=== PATIENT | female | born 1975 | race Caucasian/White ===

== ENCOUNTER 2018-05-19 17:38 | Inpatient (IN) | payer OTHER ==
[~2018-05-19] VITALS: Ht 162.6 cm; Wt 92.1 kg
[~2018-05-19 17:38] MED LIST: ATOR10TA84 PO; FERR-89 PO; FLUO-191 PO; HYDR-309 PO; LACT1CAP38 PO; LEVO75 PO
[2018-05-19] MEDS ORDERED: PANT40TA25 PO (18:42)
[2018-05-19] MEDS ORDERED: HEPA500041 SQ (18:42)
[2018-05-19] MEDS ORDERED: ONDANSETRON HCL 4 MG/2 ML VIAL IVP ONE (19:15)
[2018-05-19] MEDS ORDERED: MORPHINE SULFATE 4 MG/ML SYRINGE IVP ONE (19:15)
[2018-05-19] MEDS ORDERED: VANCOMYCIN HCL 1 GM/D5% WATER 200 ML IV ONE (19:15)
[2018-05-19 19:59] LABS: BASOPHILS % (AUTO) 0.5 % (0.0-2.0); EOSINOPHILS % (AUTO) 2.1 % (1.0-6.0); HEMATOCRIT 29.6 % (36-46); HEMOGLOBIN 9.1 g/dL (12.0-16.0); LYMPHOCYTES # (AUTO) 1.6 K/uL (1.0-4.8); LYMPHOCYTES % (AUTO) 14.7 % (22.0-44.0); MEAN CORPUSCULAR HEMOGLOBIN 21.2 pg (26.0-34.0); MEAN CORPUSCULAR HGB CONC 30.7 G/dL (31.0-37.0); MEAN CORPUSCULAR VOLUME 69 fL (80-100); MONOCYTES # (AUTO) 0.6 K/uL (0.1-1.0); MONOCYTES % (AUTO) 5.8 % (2.0-9.0); NEUTROPHILS # (AUTO) 8.3 K/uL (1.8-7.7); NEUTROPHILS % (AUTO) 76.9 % (40.0-70.0); PLATELET COUNT (AUTO) 518 K/uL (150-450); RED BLOOD CELL COUNT(AUTO) 4.29 MIL/uL (4.00-5.20); RED CELL DISTRIBUTION WIDTH 23.6 % (11.5-14.5)
[2018-05-19 20:15] LABS: ANION GAP 10 mmol/L (8-16); CALCIUM, TOTAL 9.1 mg/dL (8.8-10.5); CARBON DIOXIDE 27 mmol/L (22-29); CHLORIDE 99 mmol/L (98-107); CREATININE 0.85 mg/dL (0.60-1.30); GLOMERULAR FILTR. RATE CALC > 60 mL/min (>60); GLUCOSE,RANDOM 113 mg/dL (70-110); POTASSIUM 3.7 mmol/L (3.5-5.1); SODIUM SERUM 136 mmol/L (136-145); UREA NITROGEN, BLOOD 11 mg/dL (7-18)
[2018-05-19 20:20] LABS: B-TYPE NATRIURETIC PEPTIDE 12 pg/mL (0-100)
[2018-05-19 20:22] LABS: LACTIC ACID 1.3 mmol/L (0.4-2.0); PLATELET MORPHOLOGY COMMENT NORMAL
[2018-05-19 20:28] LABS: ALANINE AMINOTRANSFERASE 34 U/L (12-78); ALBUMIN 2.9 g/dL (3.4-5.0); ALKALINE PHOSPHATASE 87 U/L (46-116); ASPARTATE AMINOTRANSFERASE 20 U/L (15-37); BILIRUBIN,TOTAL 0.3 mg/dL (0.1-1.0); TOTAL PROTEIN, SERUM 7.3 g/dL (6.4-8.2)
[2018-05-19] MEDS ORDERED: ACETAMINOPHEN 325 MG TABLET PO PRN (20:45)
[2018-05-19] MEDS ORDERED: ONDANSETRON HCL 4 MG/2 ML VIAL IVP PRN (20:45)
[2018-05-19] MEDS ORDERED: 0.9% SODIUM CHLORIDE 10 ML SYRINGE IVP PRN (20:45)
[2018-05-19] MEDS ORDERED: IOVERSOL 350 MG/ML 100 ML VIAL ONE (20:50)
[2018-05-19] MEDS ORDERED: SODIUM CHLORIDE 0.9% 100 ML ONE (20:50)
[2018-05-19] MEDS ORDERED: HYDROmorphone 2 MG/ML SYRINGE IVP ONE (21:15)
[2018-05-19 22:17] VITALS: BP 122/71
[2018-05-19] MEDS ORDERED: DIPH25CA85 PO (22:48)
[2018-05-20] MEDS ORDERED: *CLINICAL-CEFEPIME DOSING CLINICAL ONE (00:15)
[2018-05-20] MEDS ORDERED: ALBUTEROL SULFATE 2.5 MG/0.5 ML NEB SOLUTION NEB PRN (00:30)
[2018-05-20] MEDS ORDERED: ACETAMINOPHEN 325 MG TABLET PO PRN (00:30)
[2018-05-20] MEDS ORDERED: IPRATROPIUM BROMIDE 0.5 MG/2.5 ML NEB SOLUTION NEB PRN (00:30)
[2018-05-20] MEDS ORDERED: BISACODYL 10 MG RECTAL RECTAL SUPPOSITORY PR PRN (00:30)
[2018-05-20] MEDS ORDERED: DiphenhydrAMINE HCL 25 MG CAPSULE PO PRN (00:30)
[2018-05-20] MEDS ORDERED: ONDANSETRON HCL 4 MG/2 ML VIAL IVP PRN (00:30)
[2018-05-20] MEDS: SODIUM CHLORIDE 0.9% 1,000 ML IV SCH (01:08)
[2018-05-20] MEDS ORDERED: VANCOMYCIN HCL 500 MG in DEXTROSE 5%-WATER 100 ML IV ONE (01:15)
[2018-05-20] MEDS: MORPHINE SULFATE 2 MG/ML SYRINGE IVP PRN ×2 (01:18→16:23)
[2018-05-20] MEDS: CEFEPIME HCL 2 GM in DEXTROSE 5%-WATER 50 ML IV SCH ×2 (02:24→16:10)
[2018-05-20] MEDS: HYDROCODONE/ACETAMINOPHEN 5-325 MG TABLET PO PRN ×2 (06:19→21:11)
[2018-05-20] MEDS: LEVOTHYROXINE SODIUM 75 MCG TABLET PO SCH (06:20)
[2018-05-20] MEDS: PANTOPRAZOLE SODIUM 40 MG DR TABLET PO SCH (06:35)
[2018-05-20 06:51] LABS: BASOPHILS % (AUTO) 0.4 % (0.0-2.0); EOSINOPHILS % (AUTO) 3.1 % (1.0-6.0); HEMATOCRIT 28.8 % (36-46); LYMPHOCYTES # (AUTO) 0.7 K/uL (1.0-4.8); LYMPHOCYTES % (AUTO) 7.7 % (22.0-44.0); MEAN CORPUSCULAR HEMOGLOBIN 21.5 pg (26.0-34.0); MEAN CORPUSCULAR HGB CONC 31.2 G/dL (31.0-37.0); MEAN CORPUSCULAR VOLUME 69 fL (80-100); MONOCYTES # (AUTO) 0.6 K/uL (0.1-1.0); MONOCYTES % (AUTO) 6.5 % (2.0-9.0); NEUTROPHILS # (AUTO) 7.2 K/uL (1.8-7.7); NEUTROPHILS % (AUTO) 82.3 % (40.0-70.0); PLATELET COUNT (AUTO) 487 K/uL (150-450); RED BLOOD CELL COUNT(AUTO) 4.16 MIL/uL (4.00-5.20); RED CELL DISTRIBUTION WIDTH 24.1 % (11.5-14.5)
[2018-05-20 07:10] LABS: % IRON SATURATION 4.5 % (22-44)
[2018-05-20 07:12] LABS: ALANINE AMINOTRANSFERASE 29 U/L (12-78); ALBUMIN 2.4 g/dL (3.4-5.0); ALKALINE PHOSPHATASE 84 U/L (46-116); ANION GAP 8 mmol/L (8-16); ASPARTATE AMINOTRANSFERASE 16 U/L (15-37); BILIRUBIN,TOTAL 0.4 mg/dL (0.1-1.0); CALCIUM, TOTAL 8.8 mg/dL (8.8-10.5); CARBON DIOXIDE 29 mmol/L (22-29); CHLORIDE 98 mmol/L (98-107); CREATININE 0.77 mg/dL (0.60-1.30); GLOMERULAR FILTR. RATE CALC > 60 mL/min (>60); GLUCOSE,RANDOM 98 mg/dL (70-110); POTASSIUM 3.5 mmol/L (3.5-5.1); SODIUM SERUM 135 mmol/L (136-145); UREA NITROGEN, BLOOD 9 mg/dL (7-18)
[2018-05-20] MEDS ORDERED: VANCOMYCIN HCL 1.5 GM in DEXTROSE 5%-WATER 250 ML IV SCH (08:00)
[2018-05-20] MEDS: ATORVASTATIN CALCIUM 10 MG TABLET PO SCH (08:19)
[2018-05-20] MEDS: FERROUS SULFATE 325 MG EC TABLET PO SCH ×2 (08:19→17:16)
[2018-05-20] MEDS: FLUoxetine HCL 20 MG CAPSULE PO SCH ×2 (08:19→21:09)
[2018-05-20] MEDS: HEPARIN SODIUM,PORCINE 5,000 UNITS/ML VIAL SQ SCH ×2 (08:20→21:09)
[2018-05-20] MEDS: LACTOBACILLUS ACIDOPHILUS/BULGARICUS TABLET PO SCH ×2 (08:20→21:11)
[2018-05-20 08:24] VITALS: BP 126/78
[2018-05-20 09:17] LABS: ERYTHROCYTE SEDIMENTATION RATE 40 MM/HR (0-20)
[2018-05-20 10:30] LABS: FOLATE SERUM 9.2 ng/mL (5.4-)
[2018-05-20 11:59] VITALS: BP 129/69
[2018-05-20] MEDS ORDERED: SODIUM CL IRRIG SOLN BOTTLE 250 ML IRRIG ONE (14:32)
[2018-05-20 16:05] VITALS: BP 110/59
[2018-05-20] MEDS: VANCOMYCIN HCL 1.25 GM in DEXTROSE 5%-WATER 250 ML IV SCH ×2 (16:53→23:04)
[2018-05-20 19:36] VITALS: BP 110/63
[2018-05-21] VITALS (7 sets, daily range): BP systolic 94–133; BP diastolic 46–76
[2018-05-21] MEDS: CEFEPIME HCL 2 GM in DEXTROSE 5%-WATER 50 ML IV SCH ×2 (03:46→13:50)
[2018-05-21] MEDS: PANTOPRAZOLE SODIUM 40 MG DR TABLET PO SCH (05:43)
[2018-05-21] MEDS: LEVOTHYROXINE SODIUM 75 MCG TABLET PO SCH (05:43)
[2018-05-21] MEDS: HYDROCODONE/ACETAMINOPHEN 5-325 MG TABLET PO PRN (05:44)
[2018-05-21] MEDS: VANCOMYCIN HCL 1.25 GM in DEXTROSE 5%-WATER 250 ML IV SCH ×3 (06:07→22:44)
[2018-05-21 06:31] LABS: CALCIUM, TOTAL 8.6 mg/dL (8.8-10.5); CHLORIDE 100 mmol/L (98-107); GLOMERULAR FILTR. RATE CALC > 60 mL/min (>60); GLUCOSE,RANDOM 117 mg/dL (70-110); POTASSIUM 3.7 mmol/L (3.5-5.1); SODIUM SERUM 134 mmol/L (136-145); UREA NITROGEN, BLOOD 11 mg/dL (7-18)
[2018-05-21 07:01] LABS: ANION GAP 4 mmol/L (8-16); CARBON DIOXIDE 30 mmol/L (22-29)
[2018-05-21] MEDS: HEPARIN SODIUM,PORCINE 5,000 UNITS/ML VIAL SQ SCH ×2 (08:47→20:00)
[2018-05-21] MEDS: ATORVASTATIN CALCIUM 10 MG TABLET PO SCH (08:47)
[2018-05-21] MEDS: FERROUS SULFATE 325 MG EC TABLET PO SCH ×2 (08:47→17:31)
[2018-05-21] MEDS: LACTOBACILLUS ACIDOPHILUS/BULGARICUS TABLET PO SCH ×2 (08:50→20:00)
[2018-05-21] MEDS: FLUoxetine HCL 20 MG CAPSULE PO SCH ×2 (08:50→20:00)
[2018-05-21] MEDS: MULTIVITAMINS WITH MINERALS, THERAPEUTIC TABLET PO SCH (12:19)
[2018-05-21] MEDS: SODIUM CHLORIDE 0.9% 1,000 ML IV SCH (15:31)
[2018-05-21] MEDS: MORPHINE SULFATE 2 MG/ML SYRINGE IVP PRN (21:50)
[2018-05-22] MEDS: CEFEPIME HCL 2 GM in DEXTROSE 5%-WATER 50 ML IV SCH ×2 (01:59→13:58)
[2018-05-22 04:27] VITALS: BP 125/60
[2018-05-22] MEDS: LEVOTHYROXINE SODIUM 75 MCG TABLET PO SCH (05:10)
[2018-05-22] MEDS: PANTOPRAZOLE SODIUM 40 MG DR TABLET PO SCH (05:10)
[2018-05-22 06:08] LABS: ANION GAP 5 mmol/L (8-16); CALCIUM, TOTAL 8.4 mg/dL (8.8-10.5); CARBON DIOXIDE 29 mmol/L (22-29); CHLORIDE 102 mmol/L (98-107); CREATININE 0.66 mg/dL (0.60-1.30); GLOMERULAR FILTR. RATE CALC > 60 mL/min (>60); GLUCOSE,RANDOM 101 mg/dL (70-110); POTASSIUM 3.4 mmol/L (3.5-5.1); SODIUM SERUM 136 mmol/L (136-145); UREA NITROGEN, BLOOD 8 mg/dL (7-18); VANCOMYCIN,RANDOM 22.4 mcg/mL (25.0-50.0)
[2018-05-22] MEDS: VANCOMYCIN HCL 1.25 GM in DEXTROSE 5%-WATER 250 ML IV SCH ×3 (06:42→22:18)
[2018-05-22] MEDS: SODIUM CHLORIDE 0.9% 1,000 ML IV SCH ×2 (06:45→20:11)
[2018-05-22 07:57] VITALS: BP 103/54
[2018-05-22] MEDS: LACTOBACILLUS ACIDOPHILUS/BULGARICUS TABLET PO SCH ×2 (08:11→20:11)
[2018-05-22] MEDS: MULTIVITAMINS WITH MINERALS, THERAPEUTIC TABLET PO SCH (08:11)
[2018-05-22] MEDS: ATORVASTATIN CALCIUM 10 MG TABLET PO SCH (08:11)
[2018-05-22] MEDS: FERROUS SULFATE 325 MG EC TABLET PO SCH ×2 (08:11→18:06)
[2018-05-22] MEDS: HEPARIN SODIUM,PORCINE 5,000 UNITS/ML VIAL SQ SCH ×2 (08:11→20:11)
[2018-05-22] MEDS: FLUoxetine HCL 20 MG CAPSULE PO SCH ×2 (08:11→20:11)
[2018-05-22 11:55] VITALS: BP 121/62
[2018-05-22] MEDS: MORPHINE SULFATE 2 MG/ML SYRINGE IVP PRN ×2 (14:43→20:31)
[2018-05-22 15:15] VITALS: BP 123/78
[2018-05-22] MEDS: HYDROCODONE/ACETAMINOPHEN 5-325 MG TABLET PO PRN (18:54)
[2018-05-22] MEDS ORDERED: POTASSIUM CHLORIDE 20 MEQ ER TABLET PO ONE (20:00)
[2018-05-22 20:03] VITALS: BP 122/68
[2018-05-22 23:30] VITALS: BP 127/81
[2018-05-23] MEDS: CEFEPIME HCL 2 GM in DEXTROSE 5%-WATER 50 ML IV SCH ×2 (02:12→13:48)
[2018-05-23 05:05] VITALS: BP 123/82
[2018-05-23] MEDS: PANTOPRAZOLE SODIUM 40 MG DR TABLET PO SCH (06:01)
[2018-05-23] MEDS: VANCOMYCIN HCL 1.25 GM in DEXTROSE 5%-WATER 250 ML IV SCH ×3 (06:01→23:35)
[2018-05-23] MEDS: LEVOTHYROXINE SODIUM 75 MCG TABLET PO SCH (06:01)
[2018-05-23 06:06] LABS: ANION GAP 6 mmol/L (8-16); CALCIUM, TOTAL 8.4 mg/dL (8.8-10.5); CARBON DIOXIDE 29 mmol/L (22-29); CHLORIDE 102 mmol/L (98-107); CREATININE 0.63 mg/dL (0.60-1.30); GLOMERULAR FILTR. RATE CALC > 60 mL/min (>60); GLUCOSE,RANDOM 103 mg/dL (70-110); POTASSIUM 3.9 mmol/L (3.5-5.1); SODIUM SERUM 137 mmol/L (136-145); UREA NITROGEN, BLOOD 6 mg/dL (7-18)
[2018-05-23 07:15] VITALS: BP 107/67
[2018-05-23] MEDS: FLUoxetine HCL 20 MG CAPSULE PO SCH ×2 (08:31→20:17)
[2018-05-23] MEDS: FERROUS SULFATE 325 MG EC TABLET PO SCH ×2 (08:31→17:28)
[2018-05-23] MEDS: LACTOBACILLUS ACIDOPHILUS/BULGARICUS TABLET PO SCH ×2 (08:31→20:18)
[2018-05-23] MEDS: HEPARIN SODIUM,PORCINE 5,000 UNITS/ML VIAL SQ SCH ×2 (08:32→20:18)
[2018-05-23] MEDS: SODIUM CHLORIDE 0.9% 1,000 ML IV SCH ×2 (08:33→22:02)
[2018-05-23] MEDS: HYDROCODONE/ACETAMINOPHEN 5-325 MG TABLET PO PRN ×2 (10:59→20:18)
[2018-05-23] MEDS: ATORVASTATIN CALCIUM 10 MG TABLET PO SCH (11:02)
[2018-05-23] MEDS: MULTIVITAMINS WITH MINERALS, THERAPEUTIC TABLET PO SCH (11:03)
[2018-05-23 11:10] VITALS: BP 112/64
[2018-05-23] MEDS: MORPHINE SULFATE 2 MG/ML SYRINGE IVP PRN (15:14)
[2018-05-23 15:41] LABS: BASOPHILS % (AUTO) 0.6 % (0.0-2.0); EOSINOPHILS % (AUTO) 3.8 % (1.0-6.0); HEMATOCRIT 27.9 % (36-46); HEMOGLOBIN 8.4 g/dL (12.0-16.0); MEAN CORPUSCULAR HEMOGLOBIN 21.5 pg (26.0-34.0); MEAN CORPUSCULAR VOLUME 72 fL (80-100); MONOCYTES # (AUTO) 0.8 K/uL (0.1-1.0); MONOCYTES % (AUTO) 7.5 % (2.0-9.0); NEUTROPHILS # (AUTO) 8.7 K/uL (1.8-7.7); NEUTROPHILS % (AUTO) 79.1 % (40.0-70.0); PLATELET COUNT (AUTO) 472 K/uL (150-450); RED CELL DISTRIBUTION WIDTH 23.7 % (11.5-14.5)
[2018-05-23 15:56] VITALS: BP 129/76
[2018-05-23 19:44] VITALS: BP 102/60
[2018-05-23 23:11] VITALS: BP 112/67
[2018-05-24] MEDS: CEFEPIME HCL 2 GM in DEXTROSE 5%-WATER 50 ML IV SCH ×2 (01:12→14:13)
[2018-05-24] MEDS: PANTOPRAZOLE SODIUM 40 MG DR TABLET PO SCH (06:11)
[2018-05-24] MEDS: LEVOTHYROXINE SODIUM 75 MCG TABLET PO SCH (06:11)
[2018-05-24] MEDS: VANCOMYCIN HCL 1.25 GM in DEXTROSE 5%-WATER 250 ML IV SCH ×3 (06:11→23:40)
[2018-05-24 06:33] LABS: ANION GAP 6 mmol/L (8-16); CALCIUM, TOTAL 8.4 mg/dL (8.8-10.5); CARBON DIOXIDE 30 mmol/L (22-29); CHLORIDE 101 mmol/L (98-107); CREATININE 0.55 mg/dL (0.60-1.30); GLOMERULAR FILTR. RATE CALC > 60 mL/min (>60); GLUCOSE,RANDOM 103 mg/dL (70-110); POTASSIUM 3.7 mmol/L (3.5-5.1); SODIUM SERUM 137 mmol/L (136-145); UREA NITROGEN, BLOOD 8 mg/dL (7-18); VANCOMYCIN,RANDOM 21.5 mcg/mL (25.0-50.0)
[2018-05-24 07:28] VITALS: BP 118/69
[2018-05-24] MEDS: HEPARIN SODIUM,PORCINE 5,000 UNITS/ML VIAL SQ SCH ×2 (08:17→21:20)
[2018-05-24] MEDS: FLUoxetine HCL 20 MG CAPSULE PO SCH ×2 (08:18→21:19)
[2018-05-24] MEDS: FERROUS SULFATE 325 MG EC TABLET PO SCH ×2 (08:18→17:51)
[2018-05-24] MEDS: LACTOBACILLUS ACIDOPHILUS/BULGARICUS TABLET PO SCH ×2 (08:18→21:19)
[2018-05-24] MEDS: MULTIVITAMINS WITH MINERALS, THERAPEUTIC TABLET PO SCH (08:18)
[2018-05-24] MEDS: HYDROCODONE/ACETAMINOPHEN 5-325 MG TABLET PO PRN ×2 (08:18→15:03)
[2018-05-24] MEDS: ATORVASTATIN CALCIUM 10 MG TABLET PO SCH (08:23)
[2018-05-24] MEDS: SODIUM CHLORIDE 0.9% 1,000 ML IV SCH (11:10)
[2018-05-24 12:15] VITALS: BP 112/85
[2018-05-24 15:42] VITALS: BP 107/73
[2018-05-24 19:45] VITALS: BP 117/76
[2018-05-24 23:34] VITALS: BP 103/61
[2018-05-25] MEDS: CEFEPIME HCL 2 GM in DEXTROSE 5%-WATER 50 ML IV SCH ×2 (02:26→13:12)
[2018-05-25] MEDS: SODIUM CHLORIDE 0.9% 1,000 ML IV SCH ×2 (02:28→23:08)
[2018-05-25 04:24] VITALS: BP 101/74
[2018-05-25] MEDS: LEVOTHYROXINE SODIUM 75 MCG TABLET PO SCH (06:34)
[2018-05-25] MEDS: PANTOPRAZOLE SODIUM 40 MG DR TABLET PO SCH (06:34)
[2018-05-25] MEDS: VANCOMYCIN HCL 1.25 GM in DEXTROSE 5%-WATER 250 ML IV SCH ×3 (06:37→23:08)
[2018-05-25 06:51] LABS: ANION GAP 6 mmol/L (8-16); CALCIUM, TOTAL 8.3 mg/dL (8.8-10.5); CARBON DIOXIDE 29 mmol/L (22-29); CHLORIDE 101 mmol/L (98-107); CREATININE 0.51 mg/dL (0.60-1.30); GLOMERULAR FILTR. RATE CALC > 60 mL/min (>60); GLUCOSE,RANDOM 98 mg/dL (70-110); POTASSIUM 3.7 mmol/L (3.5-5.1); SODIUM SERUM 136 mmol/L (136-145); UREA NITROGEN, BLOOD 9 mg/dL (7-18)
[2018-05-25 07:16] VITALS: BP 115/64
[2018-05-25] MEDS: ATORVASTATIN CALCIUM 10 MG TABLET PO SCH (08:04)
[2018-05-25] MEDS: LACTOBACILLUS ACIDOPHILUS/BULGARICUS TABLET PO SCH ×2 (08:04→20:17)
[2018-05-25] MEDS: MULTIVITAMINS WITH MINERALS, THERAPEUTIC TABLET PO SCH (08:05)
[2018-05-25] MEDS: HYDROCODONE/ACETAMINOPHEN 5-325 MG TABLET PO PRN (08:05)
[2018-05-25] MEDS: FLUoxetine HCL 20 MG CAPSULE PO SCH ×2 (08:05→20:17)
[2018-05-25] MEDS: FERROUS SULFATE 325 MG EC TABLET PO SCH ×2 (08:05→18:38)
[2018-05-25] MEDS ORDERED: SODIUM CL IRRIG SOLN BOTTLE 0 ML IRRIG ONE (08:55)
[2018-05-25] MEDS: HEPARIN SODIUM,PORCINE 5,000 UNITS/ML VIAL SQ SCH ×2 (09:00→21:00)
[2018-05-25 11:22] VITALS: BP 126/77
[2018-05-25] MEDS: MORPHINE SULFATE 2 MG/ML SYRINGE IVP PRN ×3 (13:12→23:08)
[2018-05-25 15:25] VITALS: BP 134/83
[2018-05-25 19:48] VITALS: BP 105/61
[2018-05-26] VITALS (7 sets, daily range): BP systolic 98–123; BP diastolic 56–73
[2018-05-26] MEDS: CEFEPIME HCL 2 GM in DEXTROSE 5%-WATER 50 ML IV SCH ×2 (03:24→14:25)
[2018-05-26] MEDS ORDERED: SODIUM CL IRRIG SOLN BOTTLE 250 ML IRRIG ONE (05:14)
[2018-05-26 06:11] LABS: ANION GAP 7 mmol/L (8-16); CALCIUM, TOTAL 8.4 mg/dL (8.8-10.5); CARBON DIOXIDE 28 mmol/L (22-29); CHLORIDE 100 mmol/L (98-107); CREATININE 0.52 mg/dL (0.60-1.30); GLOMERULAR FILTR. RATE CALC > 60 mL/min (>60); GLUCOSE,RANDOM 103 mg/dL (70-110); POTASSIUM 3.7 mmol/L (3.5-5.1); SODIUM SERUM 135 mmol/L (136-145); UREA NITROGEN, BLOOD 7 mg/dL (7-18); VANCOMYCIN,RANDOM 21.6 mcg/mL (25.0-50.0)
[2018-05-26] MEDS: PANTOPRAZOLE SODIUM 40 MG DR TABLET PO SCH (06:14)
[2018-05-26] MEDS: LEVOTHYROXINE SODIUM 75 MCG TABLET PO SCH (06:14)
[2018-05-26] MEDS: VANCOMYCIN HCL 1.25 GM in DEXTROSE 5%-WATER 250 ML IV SCH ×3 (06:14→23:45)
[2018-05-26] MEDS: MULTIVITAMINS WITH MINERALS, THERAPEUTIC TABLET PO SCH (08:24)
[2018-05-26] MEDS: MORPHINE SULFATE 2 MG/ML SYRINGE IVP PRN ×3 (08:24→20:09)
[2018-05-26] MEDS: FERROUS SULFATE 325 MG EC TABLET PO SCH ×2 (08:24→17:49)
[2018-05-26] MEDS: LACTOBACILLUS ACIDOPHILUS/BULGARICUS TABLET PO SCH ×2 (08:25→20:08)
[2018-05-26] MEDS: FLUoxetine HCL 20 MG CAPSULE PO SCH ×2 (08:25→20:08)
[2018-05-26] MEDS: ATORVASTATIN CALCIUM 10 MG TABLET PO SCH (08:26)
[2018-05-26] MEDS: HYDROCODONE/ACETAMINOPHEN 5-325 MG TABLET PO PRN ×2 (08:44→21:59)
[2018-05-26] MEDS: HEPARIN SODIUM,PORCINE 5,000 UNITS/ML VIAL SQ SCH ×2 (09:00→20:02)
[2018-05-27] MEDS: CEFEPIME HCL 2 GM in DEXTROSE 5%-WATER 50 ML IV SCH (02:23)
[2018-05-27 03:53] VITALS: BP 111/65
[2018-05-27 06:37] LABS: BASOPHILS % (AUTO) 0.9 % (0.0-2.0); EOSINOPHILS % (AUTO) 4.9 % (1.0-6.0); HEMATOCRIT 25.8 % (36-46); LYMPHOCYTES # (AUTO) 1.2 K/uL (1.0-4.8); LYMPHOCYTES % (AUTO) 10.9 % (22.0-44.0); MEAN CORPUSCULAR HEMOGLOBIN 21.5 pg (26.0-34.0); MEAN CORPUSCULAR HGB CONC 31.2 G/dL (31.0-37.0); MEAN CORPUSCULAR VOLUME 69 fL (80-100); MONOCYTES # (AUTO) 1.1 K/uL (0.1-1.0); MONOCYTES % (AUTO) 9.9 % (2.0-9.0); NEUTROPHILS # (AUTO) 7.9 K/uL (1.8-7.7); NEUTROPHILS % (AUTO) 73.4 % (40.0-70.0); PLATELET COUNT (AUTO) 473 K/uL (150-450); RED BLOOD CELL COUNT(AUTO) 3.74 MIL/uL (4.00-5.20); RED CELL DISTRIBUTION WIDTH 22.5 % (11.5-14.5)
[2018-05-27] MEDS: LEVOTHYROXINE SODIUM 75 MCG TABLET PO SCH (06:53)
[2018-05-27] MEDS: VANCOMYCIN HCL 1.25 GM in DEXTROSE 5%-WATER 250 ML IV SCH (06:53)
[2018-05-27] MEDS: PANTOPRAZOLE SODIUM 40 MG DR TABLET PO SCH (06:53)
[2018-05-27 06:57] LABS: ANION GAP 5 mmol/L (8-16); CALCIUM, TOTAL 8.5 mg/dL (8.8-10.5); CARBON DIOXIDE 30 mmol/L (22-29); CHLORIDE 100 mmol/L (98-107); CREATININE 0.51 mg/dL (0.60-1.30); GLOMERULAR FILTR. RATE CALC > 60 mL/min (>60); GLUCOSE,RANDOM 116 mg/dL (70-110); POTASSIUM 3.6 mmol/L (3.5-5.1); SODIUM SERUM 135 mmol/L (136-145); UREA NITROGEN, BLOOD 9 mg/dL (7-18)
[2018-05-27 07:00] VITALS: BP 129/77
[2018-05-27] MEDS: FERROUS SULFATE 325 MG EC TABLET PO SCH ×2 (08:20→18:25)
[2018-05-27] MEDS: LACTOBACILLUS ACIDOPHILUS/BULGARICUS TABLET PO SCH ×2 (08:20→20:10)
[2018-05-27] MEDS: ATORVASTATIN CALCIUM 10 MG TABLET PO SCH (08:20)
[2018-05-27] MEDS: FLUoxetine HCL 20 MG CAPSULE PO SCH ×2 (08:20→21:00)
[2018-05-27] MEDS: HEPARIN SODIUM,PORCINE 5,000 UNITS/ML VIAL SQ SCH ×3 (08:21→20:11)
[2018-05-27] MEDS: MULTIVITAMINS WITH MINERALS, THERAPEUTIC TABLET PO SCH (08:21)
[2018-05-27] MEDS: SULFAMETHOX/TRIMETH DS 800-160 MG/TABLET PO SCH ×2 (11:09→20:10)
[2018-05-27 12:13] VITALS: BP 123/73
[2018-05-27] MEDS ORDERED: SODIUM CL IRRIG SOLN BOTTLE 250 ML IRRIG ONE (12:15)
[2018-05-27] MEDS: HYDROCODONE/ACETAMINOPHEN 5-325 MG TABLET PO PRN (12:20)
[2018-05-27 15:23] VITALS: BP 124/74
[2018-05-27 19:38] VITALS: BP 130/97
[2018-05-28] VITALS (7 sets, daily range): BP systolic 103–129; BP diastolic 61–92
[2018-05-28] MEDS: LEVOTHYROXINE SODIUM 75 MCG TABLET PO SCH (05:25)
[2018-05-28] MEDS: PANTOPRAZOLE SODIUM 40 MG DR TABLET PO SCH (05:25)
[2018-05-28 06:26] LABS: ANION GAP 6 mmol/L (8-16); CALCIUM, TOTAL 8.5 mg/dL (8.8-10.5); CARBON DIOXIDE 30 mmol/L (22-29); CHLORIDE 101 mmol/L (98-107); CREATININE 0.64 mg/dL (0.60-1.30); GLOMERULAR FILTR. RATE CALC > 60 mL/min (>60); GLUCOSE,RANDOM 96 mg/dL (70-110); POTASSIUM 3.6 mmol/L (3.5-5.1); SODIUM SERUM 137 mmol/L (136-145); UREA NITROGEN, BLOOD 10 mg/dL (7-18)
[2018-05-28] MEDS: ATORVASTATIN CALCIUM 10 MG TABLET PO SCH (08:29)
[2018-05-28] MEDS: MULTIVITAMINS WITH MINERALS, THERAPEUTIC TABLET PO SCH (08:29)
[2018-05-28] MEDS: FLUoxetine HCL 20 MG CAPSULE PO SCH ×2 (08:29→19:51)
[2018-05-28] MEDS: LACTOBACILLUS ACIDOPHILUS/BULGARICUS TABLET PO SCH ×2 (08:29→19:51)
[2018-05-28] MEDS: FERROUS SULFATE 325 MG EC TABLET PO SCH ×2 (08:30→18:19)
[2018-05-28] MEDS: HEPARIN SODIUM,PORCINE 5,000 UNITS/ML VIAL SQ SCH ×2 (08:30→19:52)
[2018-05-28] MEDS: SULFAMETHOX/TRIMETH DS 800-160 MG/TABLET PO SCH ×2 (08:30→19:51)
[2018-05-28] MEDS: HYDROCODONE/ACETAMINOPHEN 5-325 MG TABLET PO PRN (12:34)
[2018-05-29 04:07] VITALS: BP 98/61
[2018-05-29] MEDS: LEVOTHYROXINE SODIUM 75 MCG TABLET PO SCH (05:36)
[2018-05-29] MEDS: PANTOPRAZOLE SODIUM 40 MG DR TABLET PO SCH (05:36)
[2018-05-29 07:24] VITALS: BP 115/73
[2018-05-29] MEDS: MULTIVITAMINS WITH MINERALS, THERAPEUTIC TABLET PO SCH (09:05)
[2018-05-29] MEDS: FERROUS SULFATE 325 MG EC TABLET PO SCH ×2 (09:05→17:30)
[2018-05-29] MEDS: ATORVASTATIN CALCIUM 10 MG TABLET PO SCH (09:05)
[2018-05-29] MEDS: SULFAMETHOX/TRIMETH DS 800-160 MG/TABLET PO SCH ×2 (09:05→19:59)
[2018-05-29] MEDS: LACTOBACILLUS ACIDOPHILUS/BULGARICUS TABLET PO SCH ×2 (09:05→19:59)
[2018-05-29] MEDS: FLUoxetine HCL 20 MG CAPSULE PO SCH ×2 (09:06→19:59)
[2018-05-29] MEDS: HEPARIN SODIUM,PORCINE 5,000 UNITS/ML VIAL SQ SCH (09:10)
[2018-05-29] MEDS: HYDROCODONE/ACETAMINOPHEN 5-325 MG TABLET PO PRN ×2 (10:57→19:59)
[2018-05-29 11:23] VITALS: BP 120/78
[2018-05-29] MEDS ORDERED: SODIUM CL IRRIG SOLN BOTTLE 250 ML IRRIG ONE (13:39)
[2018-05-29 16:16] VITALS: BP 121/78
[2018-05-29 19:50] VITALS: BP 128/79
[2018-05-29 23:12] VITALS: BP 134/84
[2018-05-30 04:18] VITALS: BP 128/73
[2018-05-30] MEDS: LEVOTHYROXINE SODIUM 75 MCG TABLET PO SCH (06:12)
[2018-05-30] MEDS: PANTOPRAZOLE SODIUM 40 MG DR TABLET PO SCH (06:12)
[2018-05-30 06:15] LABS: BASOPHILS % (AUTO) 0.7 % (0.0-2.0); EOSINOPHILS % (AUTO) 3.2 % (1.0-6.0); HEMOGLOBIN 8.4 g/dL (12.0-16.0); LYMPHOCYTES # (AUTO) 1.3 K/uL (1.0-4.8); LYMPHOCYTES % (AUTO) 11.6 % (22.0-44.0); MEAN CORPUSCULAR HEMOGLOBIN 21.3 pg (26.0-34.0); MEAN CORPUSCULAR HGB CONC 31.2 G/dL (31.0-37.0); MEAN CORPUSCULAR VOLUME 68 fL (80-100); MONOCYTES # (AUTO) 0.8 K/uL (0.1-1.0); MONOCYTES % (AUTO) 7.2 % (2.0-9.0); NEUTROPHILS # (AUTO) 8.9 K/uL (1.8-7.7); NEUTROPHILS % (AUTO) 77.3 % (40.0-70.0); PLATELET COUNT (AUTO) 557 K/uL (150-450); RED BLOOD CELL COUNT(AUTO) 3.96 MIL/uL (4.00-5.20); RED CELL DISTRIBUTION WIDTH 22.2 % (11.5-14.5)
[2018-05-30] MEDS: SULFAMETHOX/TRIMETH DS 800-160 MG/TABLET PO SCH ×2 (07:40→19:36)
[2018-05-30] MEDS: FERROUS SULFATE 325 MG EC TABLET PO SCH ×2 (07:40→17:28)
[2018-05-30] MEDS: FLUoxetine HCL 20 MG CAPSULE PO SCH ×2 (07:40→19:36)
[2018-05-30] MEDS: ATORVASTATIN CALCIUM 10 MG TABLET PO SCH (07:40)
[2018-05-30] MEDS: LACTOBACILLUS ACIDOPHILUS/BULGARICUS TABLET PO SCH ×2 (07:40→19:36)
[2018-05-30] MEDS: MULTIVITAMINS WITH MINERALS, THERAPEUTIC TABLET PO SCH (07:40)
[2018-05-30 07:44] VITALS: BP 125/71
[2018-05-30 11:25] VITALS: BP 114/65
[2018-05-30 15:59] VITALS: BP 138/75
[2018-05-30 19:30] VITALS: BP 115/71
[2018-05-30 23:33] VITALS: BP 137/87
[2018-05-31 04:10] VITALS: BP 130/74
[2018-05-31] MEDS: LEVOTHYROXINE SODIUM 75 MCG TABLET PO SCH (05:24)
[2018-05-31] MEDS: PANTOPRAZOLE SODIUM 40 MG DR TABLET PO SCH (05:24)
[2018-05-31 07:52] VITALS: BP 128/76
[2018-05-31] MEDS: SULFAMETHOX/TRIMETH DS 800-160 MG/TABLET PO SCH ×2 (08:42→19:54)
[2018-05-31] MEDS: MULTIVITAMINS WITH MINERALS, THERAPEUTIC TABLET PO SCH (08:42)
[2018-05-31] MEDS: ATORVASTATIN CALCIUM 10 MG TABLET PO SCH (08:42)
[2018-05-31] MEDS: FLUoxetine HCL 20 MG CAPSULE PO SCH ×2 (08:42→19:53)
[2018-05-31] MEDS: LACTOBACILLUS ACIDOPHILUS/BULGARICUS TABLET PO SCH ×2 (08:42→19:54)
[2018-05-31] MEDS: FERROUS SULFATE 325 MG EC TABLET PO SCH ×2 (08:42→17:02)
[2018-05-31] MEDS: HYDROCODONE/ACETAMINOPHEN 5-325 MG TABLET PO PRN (09:26)
[2018-05-31 10:34] LABS: BASOPHILS % (AUTO) 0.9 % (0.0-2.0); EOSINOPHILS % (AUTO) 2.6 % (1.0-6.0); HEMATOCRIT 28.3 % (36-46); HEMOGLOBIN 8.9 g/dL (12.0-16.0); LYMPHOCYTES # (AUTO) 1.2 K/uL (1.0-4.8); LYMPHOCYTES % (AUTO) 8.7 % (22.0-44.0); MEAN CORPUSCULAR HEMOGLOBIN 21.2 pg (26.0-34.0); MEAN CORPUSCULAR HGB CONC 31.3 G/dL (31.0-37.0); MEAN CORPUSCULAR VOLUME 68 fL (80-100); MONOCYTES # (AUTO) 0.9 K/uL (0.1-1.0); MONOCYTES % (AUTO) 6.3 % (2.0-9.0); NEUTROPHILS # (AUTO) 11.5 K/uL (1.8-7.7); NEUTROPHILS % (AUTO) 81.5 % (40.0-70.0); PLATELET COUNT (AUTO) 672 K/uL (150-450); RED BLOOD CELL COUNT(AUTO) 4.17 MIL/uL (4.00-5.20); RED CELL DISTRIBUTION WIDTH 21.9 % (11.5-14.5)
[2018-05-31 10:50] LABS: ANION GAP 8 mmol/L (8-16); CALCIUM, TOTAL 8.6 mg/dL (8.8-10.5); CARBON DIOXIDE 27 mmol/L (22-29); CHLORIDE 101 mmol/L (98-107); CREATININE 0.72 mg/dL (0.60-1.30); GLOMERULAR FILTR. RATE CALC > 60 mL/min (>60); GLUCOSE,RANDOM 155 mg/dL (70-110); POTASSIUM 3.5 mmol/L (3.5-5.1); SODIUM SERUM 136 mmol/L (136-145); UREA NITROGEN, BLOOD 8 mg/dL (7-18)
[2018-05-31 11:41] VITALS: BP 140/83
[2018-05-31 15:25] VITALS: BP 121/77
[2018-05-31 20:00] VITALS: BP 121/79
[2018-05-31 23:52] VITALS: BP 105/65
[2018-06-01 04:48] VITALS: BP 108/66
[2018-06-01] MEDS: PANTOPRAZOLE SODIUM 40 MG DR TABLET PO SCH (05:56)
[2018-06-01] MEDS: LEVOTHYROXINE SODIUM 75 MCG TABLET PO SCH (05:56)
[2018-06-01 07:45] VITALS: BP 125/72
[2018-06-01] MEDS: MULTIVITAMINS WITH MINERALS, THERAPEUTIC TABLET PO SCH (08:42)
[2018-06-01] MEDS: LACTOBACILLUS ACIDOPHILUS/BULGARICUS TABLET PO SCH ×2 (08:42→19:49)
[2018-06-01] MEDS: ATORVASTATIN CALCIUM 10 MG TABLET PO SCH (08:42)
[2018-06-01] MEDS: SULFAMETHOX/TRIMETH DS 800-160 MG/TABLET PO SCH (08:42)
[2018-06-01] MEDS: FERROUS SULFATE 325 MG EC TABLET PO SCH ×2 (08:42→18:24)
[2018-06-01] MEDS: FLUoxetine HCL 20 MG CAPSULE PO SCH ×2 (08:42→19:49)
[2018-06-01 11:09] VITALS: BP 123/73
[2018-06-01 15:25] VITALS: BP 121/80
[2018-06-01] MEDS: LEVOFLOXACIN 500 MG TABLET PO SCH (16:20)
[2018-06-01 19:59] VITALS: BP 133/88
[2018-06-02] VITALS (7 sets, daily range): BP systolic 108–134; BP diastolic 57–84
[2018-06-02 06:12] LABS: BASOPHILS % (AUTO) 0.3 % (0.0-2.0); EOSINOPHILS % (AUTO) 4.2 % (1.0-6.0); HEMATOCRIT 27.6 % (36-46); HEMOGLOBIN 8.5 g/dL (12.0-16.0); LYMPHOCYTES # (AUTO) 1.2 K/uL (1.0-4.8); LYMPHOCYTES % (AUTO) 10.3 % (22.0-44.0); MEAN CORPUSCULAR HEMOGLOBIN 20.9 pg (26.0-34.0); MEAN CORPUSCULAR HGB CONC 30.8 G/dL (31.0-37.0); MEAN CORPUSCULAR VOLUME 68 fL (80-100); MONOCYTES # (AUTO) 0.7 K/uL (0.1-1.0); MONOCYTES % (AUTO) 6.5 % (2.0-9.0); NEUTROPHILS % (AUTO) 78.7 % (40.0-70.0); PLATELET COUNT (AUTO) 640 K/uL (150-450); RED BLOOD CELL COUNT(AUTO) 4.08 MIL/uL (4.00-5.20); RED CELL DISTRIBUTION WIDTH 21.6 % (11.5-14.5)
[2018-06-02] MEDS: PANTOPRAZOLE SODIUM 40 MG DR TABLET PO SCH (06:33)
[2018-06-02] MEDS: LEVOTHYROXINE SODIUM 75 MCG TABLET PO SCH (06:33)
[2018-06-02] MEDS: FLUoxetine HCL 20 MG CAPSULE PO SCH ×2 (08:14→20:10)
[2018-06-02] MEDS: ATORVASTATIN CALCIUM 10 MG TABLET PO SCH (08:15)
[2018-06-02] MEDS: LACTOBACILLUS ACIDOPHILUS/BULGARICUS TABLET PO SCH ×2 (08:15→20:10)
[2018-06-02] MEDS: FERROUS SULFATE 325 MG EC TABLET PO SCH ×2 (08:15→17:06)
[2018-06-02] MEDS: LEVOFLOXACIN 500 MG TABLET PO SCH (08:15)
[2018-06-02] MEDS: MULTIVITAMINS WITH MINERALS, THERAPEUTIC TABLET PO SCH (08:15)
[2018-06-02] MEDS: HYDROCODONE/ACETAMINOPHEN 5-325 MG TABLET PO PRN (09:15)
[2018-06-02] MEDS ORDERED: LEVO500 PO (19:08)
[2018-06-03 05:19] VITALS: BP 111/76
[2018-06-03] MEDS: LEVOTHYROXINE SODIUM 75 MCG TABLET PO SCH (05:55)
[2018-06-03] MEDS: PANTOPRAZOLE SODIUM 40 MG DR TABLET PO SCH (05:55)
[2018-06-03 08:02] VITALS: BP 100/73
[2018-06-03] MEDS: FLUoxetine HCL 20 MG CAPSULE PO SCH (08:45)
[2018-06-03] MEDS: ATORVASTATIN CALCIUM 10 MG TABLET PO SCH (08:46)
[2018-06-03] MEDS: LACTOBACILLUS ACIDOPHILUS/BULGARICUS TABLET PO SCH (08:46)
[2018-06-03] MEDS: LEVOFLOXACIN 500 MG TABLET PO SCH (08:46)
[2018-06-03] MEDS: MULTIVITAMINS WITH MINERALS, THERAPEUTIC TABLET PO SCH (08:46)
[2018-06-03] MEDS: FERROUS SULFATE 325 MG EC TABLET PO SCH (08:46)
[2018-06-03 12:03] VITALS: BP 122/77
== END 2018-06-03 14:15 | disposition home health service (06) | DRG 721 ==
LOC: EMS 17:39 → 6N 21:25
PROVIDERS: ADMIT Internal Medicine; ATTEND Internal Medicine
PROC: 05HY33Z Insertion of Infusion Device into Upper Vein, Percutaneous Approach (ICD-10-PCS; principal; 2018-05-20)
DX: T81.4XXA Infection following a procedure, initial encounter (principal); L02.416 Cutaneous abscess of left lower limb; L03.116 Cellulitis of left lower limb; F32.9 Major depressive disorder, single episode, unspecified; E03.9 Hypothyroidism, unspecified; D50.9 Iron deficiency anemia, unspecified; E78.00 Pure hypercholesterolemia, unspecified; E78.5 Hyperlipidemia, unspecified; F41.9 Anxiety disorder, unspecified; Z88.0 Allergy status to penicillin; Z88.1 Allergy status to other antibiotic agents; Z91.040 Latex allergy status; Z91.048 Other nonmedicinal substance allergy status; Z79.899 Other long term (current) drug therapy; Y83.8 Other surgical procedures as the cause of abnormal reaction of the patient, or of later complication, without mention of misadventure at the time of the procedure; Y92.89 Other specified places as the place of occurrence of the external cause
CPT/HCPCS: 36245; 73701; 76881; 76937; 82270; 82607; 82728; 82746; 83540; 83550; 83605; 85651; 86140; 87040; 87070; 87081; 87205; 96365; 96375; 99285; J0692; J1170; J1644; J2270; J2405; J3370; J7030; J7050; J7060

== ENCOUNTER 2018-06-09 11:18 | Inpatient (IN) | payer OTHER ==
[~2018-06-09] VITALS: Ht 162.6 cm; Wt 91.2 kg
[~2018-06-09 11:18] MED LIST changes: -FERR-89 PO; -HYDR-309 PO; -LACT1CAP38 PO; +LEVO500 PO; +PANT40TA25 PO
[2018-06-09] MEDS ORDERED: BUPIVACAINE HCL/PF 0.25% 10 ML VIAL INJ ONE (15:00)
[2018-06-09 15:39] LABS: BASOPHILS % (AUTO) 0.6 % (0.0-2.0); EOSINOPHILS % (AUTO) 3.1 % (1.0-6.0); HEMATOCRIT 26.1 % (36-46); HEMOGLOBIN 8.3 g/dL (12.0-16.0); LYMPHOCYTES # (AUTO) 1.5 K/uL (1.0-4.8); LYMPHOCYTES % (AUTO) 18.3 % (22.0-44.0); MEAN CORPUSCULAR HEMOGLOBIN 21.2 pg (26.0-34.0); MEAN CORPUSCULAR HGB CONC 31.8 G/dL (31.0-37.0); MEAN CORPUSCULAR VOLUME 67 fL (80-100); MONOCYTES # (AUTO) 0.5 K/uL (0.1-1.0); MONOCYTES % (AUTO) 6.2 % (2.0-9.0); NEUTROPHILS # (AUTO) 5.7 K/uL (1.8-7.7); NEUTROPHILS % (AUTO) 71.8 % (40.0-70.0); PLATELET COUNT (AUTO) 676 K/uL (150-450); RED BLOOD CELL COUNT(AUTO) 3.91 MIL/uL (4.00-5.20)
[2018-06-09 15:54] LABS: ALANINE AMINOTRANSFERASE 19 U/L (12-78); ALBUMIN 2.4 g/dL (3.4-5.0); ALKALINE PHOSPHATASE 77 U/L (46-116); ANION GAP 7 mmol/L (8-16); ASPARTATE AMINOTRANSFERASE 10 U/L (15-37); BILIRUBIN,TOTAL 0.2 mg/dL (0.1-1.0); CALCIUM, TOTAL 8.2 mg/dL (8.8-10.5); CARBON DIOXIDE 30 mmol/L (22-29); CHLORIDE 102 mmol/L (98-107); CREATININE 0.54 mg/dL (0.60-1.30); GLOMERULAR FILTR. RATE CALC > 60 mL/min (>60); GLUCOSE,RANDOM 80 mg/dL (70-110); SODIUM SERUM 139 mmol/L (136-145); TOTAL PROTEIN, SERUM 6.7 g/dL (6.4-8.2); UREA NITROGEN, BLOOD 7 mg/dL (7-18)
[2018-06-09 16:00] LABS: POTASSIUM 2.7 mmol/L (3.5-5.1)
[2018-06-09] MEDS ORDERED: FentaNYL CITRATE-PF 100 MCG/2 ML VIAL IVP ONE (16:00)
[2018-06-09] MEDS ORDERED: ONDANSETRON HCL 4 MG/2 ML VIAL IVP PRN (16:00)
[2018-06-09] MEDS ORDERED: KETOROLAC TROMETHAMINE 30 MG/ML VIAL IVP ONE (16:00)
[2018-06-09] MEDS ORDERED: ACETAMINOPHEN 325 MG TABLET PO PRN ×2 (16:00→21:15)
[2018-06-09] MEDS ORDERED: 0.9% SODIUM CHLORIDE 10 ML SYRINGE IVP PRN (16:00)
[2018-06-09] MEDS ORDERED: POTASSIUM CHLORIDE 10% 40 MEQ/30 ML LIQUID UDCUP PO ONE (16:15)
[2018-06-09 17:08] VITALS: BP 127/78
[2018-06-09 19:43] VITALS: BP 91/47
[2018-06-09 20:19] VITALS: BP 108/59
[2018-06-09] MEDS ORDERED: POTASSIUM CHLORIDE 20 MEQ ER TABLET PO PRN (21:15)
[2018-06-09] MEDS ORDERED: MAGNESIUM HYDROXIDE SUSPENSION 30 ML UDCUP PO PRN (21:15)
[2018-06-09] MEDS ORDERED: MORPHINE SULFATE 2 MG/ML SYRINGE IVP PRN (21:15)
[2018-06-09] MEDS ORDERED: OxyCODONE HCL/ACETAMINOPHEN 5-325 MG TABLET PO PRN (21:15)
[2018-06-09] MEDS ORDERED: POTASSIUM CHL 10 MEQ/WATER 50 ML IV PRN (21:15)
[2018-06-10 00:26] VITALS: BP 113/71
[2018-06-10 04:51] VITALS: BP 117/70
[2018-06-10 07:08] LABS: ANION GAP 5 mmol/L (8-16); CALCIUM, TOTAL 8.1 mg/dL (8.8-10.5); CARBON DIOXIDE 31 mmol/L (22-29); CHLORIDE 105 mmol/L (98-107); CREATININE 0.56 mg/dL (0.60-1.30); GLOMERULAR FILTR. RATE CALC > 60 mL/min (>60); GLUCOSE,RANDOM 89 mg/dL (70-110); POTASSIUM 3.3 mmol/L (3.5-5.1); SODIUM SERUM 141 mmol/L (136-145); THYROID STIMULATING HORMONE 1.61 uIU/mL (0.36-3.74); UREA NITROGEN, BLOOD 9 mg/dL (7-18)
[2018-06-10 07:25] VITALS: BP 122/74
[2018-06-10] MEDS ORDERED: DOCUSATE SODIUM 100 MG CAPSULE PO SCH (09:00)
[2018-06-10] MEDS ORDERED: MULTIVITAMINS WITH MINERALS, THERAPEUTIC TABLET PO SCH (09:00)
[2018-06-10] MEDS ORDERED: PANTOPRAZOLE SODIUM 40 MG DR TABLET PO SCH (09:00)
[2018-06-10] MEDS ORDERED: FLUoxetine HCL 20 MG CAPSULE PO SCH (09:00)
[2018-06-10 10:41] VITALS: BP 118/76
[2018-06-10] MEDS ORDERED: SODIUM CL IRRIG SOLN BOTTLE 250 ML IRRIG ONE (13:45)
[2018-06-10] MEDS ORDERED: FERROUS SULFATE 325 MG EC TABLET PO SCH (18:00)
== END 2018-06-10 16:00 | disposition home or self-care (01) | DRG 383 ==
LOC: EMS 11:20 → 6N 16:53
PROVIDERS: ADMIT Internal Medicine; ATTEND Internal Medicine
DX: L03.116 Cellulitis of left lower limb (principal); F32.9 Major depressive disorder, single episode, unspecified; E03.9 Hypothyroidism, unspecified; F41.9 Anxiety disorder, unspecified; E78.00 Pure hypercholesterolemia, unspecified; R62.50 Unspecified lack of expected normal physiological development in childhood; D63.8 Anemia in other chronic diseases classified elsewhere; Z88.0 Allergy status to penicillin; E87.6 Hypokalemia; Z88.1 Allergy status to other antibiotic agents; Z91.040 Latex allergy status; Z79.899 Other long term (current) drug therapy; Z22.322 Carrier or suspected carrier of Methicillin resistant Staphylococcus aureus
CPT/HCPCS: 10160; 83605; 84443; 87081; 96374; 96375; 99285; J1885; J3010; J3490

== ENCOUNTER 2018-07-11 14:07 | Emergency (ER) | payer OTHER ==
[~2018-07-11] VITALS: Ht 157.5 cm; Wt 90.9 kg
[~2018-07-11 14:07] MED LIST changes: -LEVO500 PO
[2018-07-11] MEDS ORDERED: 0.9% SODIUM CHLORIDE 10 ML SYRINGE IVP PRN (15:00)
[2018-07-11 16:01] LABS: BASOPHILS % (AUTO) 0.8 % (0.0-2.0); EOSINOPHILS % (AUTO) 2.4 % (1.0-6.0); HEMATOCRIT 27.3 % (36-46); HEMOGLOBIN 8.1 g/dL (12.0-16.0); LYMPHOCYTES # (AUTO) 1.2 K/uL (1.0-4.8); LYMPHOCYTES % (AUTO) 14.7 % (22.0-44.0); MEAN CORPUSCULAR HEMOGLOBIN 20.6 pg (26.0-34.0); MEAN CORPUSCULAR HGB CONC 29.8 G/dL (31.0-37.0); MEAN CORPUSCULAR VOLUME 69 fL (80-100); MONOCYTES # (AUTO) 0.7 K/uL (0.1-1.0); MONOCYTES % (AUTO) 8.4 % (2.0-9.0); NEUTROPHILS # (AUTO) 6.1 K/uL (1.8-7.7); NEUTROPHILS % (AUTO) 73.7 % (40.0-70.0); PLATELET COUNT (AUTO) 574 K/uL (150-450); RED BLOOD CELL COUNT(AUTO) 3.95 MIL/uL (4.00-5.20); RED CELL DISTRIBUTION WIDTH 20.3 % (11.5-14.5)
[2018-07-11 16:14] LABS: ANION GAP 8 mmol/L (8-16); CALCIUM, TOTAL 8.4 mg/dL (8.8-10.5); CARBON DIOXIDE 30 mmol/L (22-29); CHLORIDE 103 mmol/L (98-107); CREATININE 0.65 mg/dL (0.60-1.30); GLOMERULAR FILTR. RATE CALC > 60 mL/min (>60); GLUCOSE,RANDOM 83 mg/dL (70-110); POTASSIUM 3.2 mmol/L (3.5-5.1); SODIUM SERUM 141 mmol/L (136-145); UREA NITROGEN, BLOOD 9 mg/dL (7-18)
[2018-07-11 16:20] LABS: ALANINE AMINOTRANSFERASE 13 U/L (12-78); ALBUMIN 2.6 g/dL (3.4-5.0); ALKALINE PHOSPHATASE 86 U/L (46-116); ASPARTATE AMINOTRANSFERASE 10 U/L (15-37); BILIRUBIN,TOTAL 0.3 mg/dL (0.1-1.0); PLATELET MORPHOLOGY COMMENT LARGE PLTS PRESENT; TOTAL PROTEIN, SERUM 7.7 g/dL (6.4-8.2)
[2018-07-11] MEDS ORDERED: HYDROCODONE/ACETAMINOPHEN 5-325 MG TABLET PO ONE (16:45)
[2018-07-11] MEDS ORDERED: SULFAMETHOX/TRIMETH DS 800-160 MG/TABLET PO ONE (16:45)
[2018-07-11] MEDS ORDERED: POTASSIUM CHLORIDE 20 MEQ ER TABLET PO ONE (16:45)
[2018-07-11 17:04] LABS: LACTIC ACID 0.6 mmol/L (0.4-2.0)
[2018-07-11 17:35] VITALS: BP 141/89
== END 2018-07-11 17:47 | disposition home or self-care (01) ==
LOC: EMS 14:07
DX: L03.116 Cellulitis of left lower limb (principal); D64.9 Anemia, unspecified; F41.9 Anxiety disorder, unspecified; F32.9 Major depressive disorder, single episode, unspecified; E78.00 Pure hypercholesterolemia, unspecified; E03.9 Hypothyroidism, unspecified; Z88.0 Allergy status to penicillin; Z91.040 Latex allergy status; Z79.899 Other long term (current) drug therapy
CPT/HCPCS: 83605; 87040; 87070; 93005; 99285

== ENCOUNTER 2021-08-19 18:01 | Emergency (ER) | payer OTHER ==
[~2021-08-19] VITALS: Ht 157.5 cm; Wt 100.0 kg
[~2021-08-19 18:01] MED LIST changes: +PANT-31 PO; -PANT40TA25 PO
[2021-08-19 18:02] VITALS: BP 141/98
== END 2021-08-19 22:01 | disposition left against medical advice (07) ==
LOC: EMS 18:03
DX: S81.809A Unspecified open wound, unspecified lower leg, initial encounter (principal); Z53.21 Procedure and treatment not carried out due to patient leaving prior to being seen by health care provider; X58.XXXA Exposure to other specified factors, initial encounter